=== PATIENT | female | born 1945 | race Caucasian/White ===

== ENCOUNTER 2017-10-17 09:41 | Emergency (ER) | payer MEDICARE, BC ==
[2017-10-17 10:00] VITALS: BP 168/75
--- NOTE | 2017-10-17 10:22 | UC ---
Throat Pain/Nasal Lacho HPI - HPI Summary HPI Summary: Pt presents with c/o sudden onset of nose bleed upon waking this morning and blowing her nose. Pt states that both nostrils bleed for ~ 20 minuste with large size clots that came out of her nose and that spit out of mouth. At time of exam, no active bleeding, no difficulty breathing or swallowing - History of Current Complaint Chief Complaint: UCGeneralIllness Stated Complaint: NOSEBLEED Time Seen by Provider: 10/17/17 10:03 Hx Obtained From: Patient ?: No Onset/Duration: Sudden Onset, Lasting Minutes Severity: Moderate Pain Intensity: 0 Associated Signs & Symptoms: Positive: Negative - Epiglottits Risk Factors Epiglottis Risk Factors: Sudden Onset - Allergies/Home Medications Allergies/Adverse Reactions: Allergies Allergy/AdvReac Type Severity Reaction Status Date / Time cephalexin [From Keflex] Allergy Nausea And Verified 10/17/17 09:51 Vomiting clarithromycin [From Biaxin] Allergy Vomiting Verified 10/17/17 09:51 PMH/Surg Hx/FS Hx/Imm Hx Previously Healthy: Yes - Surgical History Surgical History: Yes Surgery Procedure, Year, and Place: Vein ligation 1981, cervical polyps, septaplasty, tissue removed from right breast - Family History Known Family History: Positive: Cardiac Disease - Social History Occupation: Retired Lives: With Family Alcohol Use: None Substance Use Type: None Smoking Status (MU): Never Smoked Tobacco Have You Smoked in the Last Year: No Review of Systems Constitutional: Negative Skin: Negative Eyes: Negative ENT: Epistaxis Respiratory: Negative Cardiovascular: Negative Gastrointestinal: Negative Genitourinary: Negative Motor: Negative Neurovascular: Negative Musculoskeletal: Negative Neurological: Negative Psychological: Negative Is Patient Immunocompromised?: No All Other Systems Reviewed And Are Negative: Yes Physical Exam Triage Information Reviewed: Yes Appearance: Well-Appearing Vital Signs: Initial Vital Signs Temp 98.4 F 10/17/17 09:53 Pulse 118 10/17/17 09:53 Resp 18 10/17/17 09:53 BP 168/75 10/17/17 09:53 Pulse Ox 98 10/17/17 09:53 Vital Signs Reviewed: Yes Eye Exam: Normal ENT Exam: Other ENT: Positive: Other - blood clot in left nostril, intact, no active bleeding in either nostirl, airway clear, Dental Exam: Normal Neck exam: Normal Respiratory Exam: Normal Cardiovascular Exam: Normal Musculoskeletal Exam: Normal Neurological Exam: Normal Psychological Exam: Normal Skin Exam: Normal Throat Pain/Nasal Course/Dx - Course Assessment/Plan: I discussed with the pt the need to keep appointment with Dr. Duvall in two weeks and to seek care at emergency department if symptoms return. Pt verbalized understanding and agreed to plan of care. - Differential Dx/Diagnosis Differential Diagnosis/HQI/PQRI: Other - epistaxis Provider Diagnoses: epistaxis-no acitve bleeding Discharge - Sign-Out/Discharge Documenting (check all that apply): Discharge/Admit/Transfer - Discharge Plan Condition: Stable Disposition: HOME Patient Education Materials: Nosebleed (ED) Referrals: Pilo Duvall MD [Medical Doctor] - (Please follow up with Dr. Hooker as scheduled. ) Matthew Balderas MD [Primary Care Provider] - If Needed Additional Instructions: Please follow up with your PCP or return to clinic as needed. If your symptoms return please seek care immediately at your closest emergency department. - Billing Disposition and Condition Condition: STABLE Disposition: HOME
== END 2017-10-17 10:29 | disposition home or self-care (01) ==
LOC: UCCORT 09:41
DX: R04.0 Epistaxis (principal); Z88.3 Allergy status to other anti-infective agents
CPT/HCPCS: 99211; G0463